=== PATIENT | female | born 1950 | race Caucasian/White ===

== ENCOUNTER → 2016-11-14 | Day surgery (SDC) | payer OTHER ==
--- NOTE | 2016-11-11 13:29 | History & Physical Pre-Op ---
General Information and HPI History of Present Illness: Krystina is a 66-year-old female with a long-standing and worsening complaint of pain to her right heel. The patient has undergone an extended course of conservative care, including shoe gear and activity modification, rest, immobilization and course of NSAIDs. None of this is yielded her any significant relief. The patient presents today for preoperative surgical consultation. Allergies/Medications Allergies: Coded Allergies: No Known Allergies (11/10/16) Past History Medical History Gastrointestinal: GERD Surgical History Pertinent Surgical History: lumpectomy Review of Systems Review of Systems: Unremarkable except for that noted in history of present illness Exam & Diagnostic Data Physical Exam: Lungs clear bilaterally. Heart sounds rate and rhythm regular. Lower extremity physical exam demonstrates intact pedal pulses bilaterally. Pulses dorsalis pedis and posterior tibial arteries are palpable bilaterally. Patient without any sensory motor deficits. Deep tendon reflexes grossly intact. Patient noted to have same and pain with palpation of plantar medial aspect the right heel. Negative Tinel sign noted with percussion the posterior tibial nerve. Ankle range of motion its position noted to be diminished, especially in dorsiflexion. Assessment/Plan Assessment/Plan: Gastrocnemius equinus and plantar fascial sites right. A lengthy discussion reviewing both surgical and conservative options was held the patient at bedside and the patient elects to go forward with surgery despite the risks. As Ranked By This Provider Problem List: 1. Plantar fascial fibromatosis Attending MD Review Statement Attending Statement Attending MD Statement: examined this patient
[~2016-11-14] VITALS: Ht 160 cm; Wt 77.1 kg
--- NOTE | 2016-11-14 08:13 | Operative Report ---
Operative/Inv Procedure Report Surgery Date: 11/14/16 Name of Procedure: 1 gastrocnemius recession right 2 plantar fasciectomy right 3 plantar fasciotomy right 4 intraoperative administration of ankle block anesthesia Pre-Operative Diagnosis: 1 gastrocnemius equinus right 2 plantar fasciosis right Post-Operative Diagnosis: The same Estimated Blood Loss: scant Surgeon/Screen Examiner: ATUL DON DPM Anesthesia: moderate sedation, block Operative/Procedure Note Note: After obtaining informed consent the patient was brought to the operating room and placed on the operating table in the supine position. The patient was then securely fastened to the operating table utilizing safety belt. After administration of IV sedation, 10 mL of 0.5% Marcaine plain was infiltrated about the patient's right ankle and 2 g Of Ancef were delivered intravenously times one dose. A well-padded calf tourniquet was placed about the patient's right upper calf. The right lower extremity was then scrubbed prepped and draped in usual aseptic manner. The right lower extremity was elevated to examine to limb, at which point the calf tourniquet was inflated 250 mmHg. Attention was directed to the distal right leg, where a linear incision was made 2 fingerbreadths distal to the medial have a gastrocnemius muscle. The skin was sized and 15 blade and deepened down to the medial margin of the gastroc fascia. The peritenon was incised and an interval was developed between the peritenon and the fascia. The sural nerve was identified and protected. A gastrocnemius recession was then performed. The deep tissues were then reapproximated 4-0 Vicryl and the skin edges reapproximated 4-0 nylon. Attention was then directed to the distal foot, where a grid pattern was marked out at 5 mm intervals over the origin of the medial slip of the plantar fascia. Portals were developed with a sterile 62 K wire. Attention was then ablated with 4 W of radiofrequency energy utilizing the Geofusion micro-ablator. Following this an incision was created down to the medial margin of the plantar fascia, where this was removed released off of its origin on the medial tubercle calcaneal tuberosity. Incision was then closed with 4-0 nylon. The incisions were dressed with [place] dressings and Coban. The patient was noted to tolerate both procedure and anesthesia well and the patient was transported from the operating room to recovery with vital signs stable and vascular status intact all digits right foot.
== END ==
LOC: STS 01:31
DX: M21.6X1 Other acquired deformities of right foot (principal); M72.2 Plantar fascial fibromatosis; K21.9 Gastro-esophageal reflux disease without esophagitis
CPT/HCPCS: J0690; J2001; J2250